=== PATIENT | male | born 1990 | race African-American/Black ===

== ENCOUNTER 2016-09-08 05:20 | Emergency (ER) | payer OTHER ==
[~2016-09-08] VITALS: Ht 185.4 cm; Wt 111.0 kg
[~2016-09-08 05:20] MED LIST: CEPH500C PO; CLIN-73 PO; CYCL-319 PO; DENIES; HYDR-3498 PO; HYDR-906 PO; IBUP-1542 PO; PSEUDOEPHEDRINE PO; TRAM50TA2 PO
[2016-09-08 05:27] VITALS: Ht 185.4 cm; Wt 111.0 kg
--- NOTE | 2016-09-08 05:41 | ERD ---
ER Documentation Chief Complaint Date/Time DATE: 09/08/16 TIME: 05:38 Chief Complaint left lower wisdom tooth pain HPI 25-year-old male presents to ED with chief complaint of constant left lower dental pain 3 days. Patient states that he was told he has a cavity over his left lower wisdom tooth however he has not had access to a dentist recently. He states that the pain is worse when he sleeping on his left side. Pain radiates down into his left lower jaw. He denies fever, chills, drooling, sore throat, difficulty breathing, or difficulty swallowing. Currently rates his pain a 9 out of 10 in severity. He states that he has been taking [place] and ibuprofen for the pain however he prefers ibuprofen because he feels that alleviates symptoms better. ROS All systems reviewed and are negative except as per history of present illness. Medications Home Meds Active Scripts Ibuprofen* (Motrin*) 600 Mg Tab, 600 MG PO Q6, #30 TAB Prov:Karlee Hurt PA-C 09/08/16 Amoxicillin/Potassium Clav (Amox-Clav 875-125 mg Tablet) 875-125 mg Tab, 1 TAB PO BID for 7 Days, #14 TAB Prov:Karlee Hurt PA-C 09/08/16 Hydrocodone/Acetaminophen ([place] 5-325 Tablet) 1 Each Tablet, 1 TAB PO Q6H Y for PAIN, #4 TAB Prov:LUZ HART PA-C 07/16/16 Cyclobenzaprine Hcl* (Cyclobenzaprine Hcl*) 10 Mg Tablet, 10 MG PO TID, #15 TAB Prov:LUZ HART PA-C 07/16/16 Tramadol HCl (Tramadol HCl) 50 Mg Tablet, 50 MG PO Q6 Y for SEVERE PAIN LEVEL 7- 10, #20 TAB Prov:MAYELIN HENDRICKS NP 02/13/16 Ibuprofen* (Motrin*) 600 Mg Tab, 600 MG PO Q6H Y for PAIN AND OR ELEVATED TEMP, #30 TAB Prov:MAYELIN HENDRICKS NP 02/13/16 Clindamycin Hcl* (Clindamycin Hcl*) 300 Mg Capsule, 300 MG PO TID for 10 Days, CAP Prov:MAYELIN HENDRICKS NP 02/13/16 Cephalexin* (Cephalexin*) 500 Mg Capsule, 500 MG PO Q6 for 10 Days, #28 CAP Prov:CHARU PEREIRA MD 12/28/15 Hydrocodone Bit-Acetaminophen* ([place]*) 5-325 Mg Tab, 1 TAB PO Q4H Y for PAIN, # 14 TAB Prov:CHARU PEREIRA MD 12/28/15 Ibuprofen* (Motrin*) 600 Mg Tab, 600 MG PO Q6H Y for PAIN, #30 TAB Prov:CHARU PEREIRA MD 12/28/15 Reported Medications [Pseudoephedrin Hcl] No Conflict Check, 30 MG PO BID 03/20/11 [Denies] No Conflict Check 03/10/11 Allergies Allergies: Coded Allergies: No Known Drug Allergies (Verified Allergy, Unknown, 08/26/14) PMhx/Soc History of Surgery: No Anesthesia Reaction: No Hx Neurological Disorder: No Hx Respiratory Disorders: No Hx Cardiac Disorders: No Hx Psychiatric Problems: No Hx Miscellaneous Medical Probl: No Hx Alcohol Use: Yes (social) Hx Substance Use: No Hx Tobacco Use: No Smoking Status: Never smoker Physical Exam Vitals Vital Signs Date Time Temp Pulse Resp B/P Pulse Ox O2 Delivery O2 Flow Rate FiO2 09/08/16 05:27 98.5 69 18 125/59 96 Physical Exam GENERAL: Non-toxic. No apparent signs of distress. HEENT: Atraumatic. Bilateral eyes are PERRL EOM intact. Normal conjunctiva, no injection. No eyelid or lower eyelid swelling noted. Ears: Normal tympanic membrane, no erythema or bulging. No ear canal swelling. No ear discharge. Nose : no nasal discharge. Throat: Oropharynx normal. Tongue pink and moist. No tonsillar swelling or tonsillar exudates. No lymphadenopathy. Poor dentition, with several carries throughout mouth. Swelling over left lower gingiva. LUNGS: Clear to auscultation. No accessory muscle use. No wheezing, no crackles. No signs or symptoms of respiratory distress. HEART: Regular rate and rhythm. No murmurs, clicks, rubs or gallops. NEURO: Cranial nerves are grossly intact. Normal mental status for age. Good muscle tone. SKIN: There is no apparent rash, petechiae, erythema or swelling. Good skin turgor. Procedures/MDM Patient presented with dental pain over the left lower molars. On physical exam there was evidence of poor dentition and gingival swelling over the lower left molars. However there is no diffuse edema or erythema over the patient's cheek or neck. Patient denied fever and chills. At this time of low suspicion for cellulitis, parotitis, pharyngitis, peritonsillar abscess, and sepsis. Physical exam findings and patient's symptoms are consistent with acute dental abscess. I gave him a prescription for Augmentin as well as ibuprofen 600 mg for pain. I explained that this infection will continue to be recurrent until he follows up with a dentist for proper dental care. At this time patient is stable for discharge and outpatient management. Advised to follow-up with dentist in 1-2 days. Departure Diagnosis: Primary Impression: Dental abscess Condition: Stable Patient Instructions: Dental Abscess Karlee Hurt PA-C Sep 08, 2016 05:41
[2016-09-08] MEDS ORDERED: IBUP-1542 PO (05:43)
[2016-09-08] MEDS ORDERED: AMOX1TAB10 PO (05:43)
== END 2016-09-08 05:57 | disposition home or self-care (01) ==
LOC: FTE 05:20
DX: K04.7 Periapical abscess without sinus (principal)
CPT/HCPCS: 99283

== ENCOUNTER 2016-10-18 10:53 | Emergency (ER) | payer SELFPAY ==
[~2016-10-18] VITALS: Ht 185.4 cm; Wt 106.5 kg
[~2016-10-18 10:53] MED LIST changes: +AMOX1TAB10 PO
[2016-10-18 10:56] VITALS: Ht 185.4 cm; Wt 106.5 kg
== END 2016-10-18 16:08 | disposition left against medical advice (07) ==
LOC: FTE 10:53
DX: Z53.21 Procedure and treatment not carried out due to patient leaving prior to being seen by health care provider (principal)

== ENCOUNTER 2016-12-31 10:51 | Emergency (ER) | payer OTHER ==
[~2016-12-31] VITALS: Ht 152.4 cm; Wt 109.5 kg
[2016-12-31 10:59] VITALS: Ht 152.4 cm; Wt 109.5 kg
[2016-12-31] MEDS ORDERED: IBUP800T25 PO (12:12)
[2016-12-31] MEDS ORDERED: AMOX1TAB10 PO (12:12)
--- NOTE | 2016-12-31 14:23 | ERD ---
ER Documentation Chief Complaint Date/Time DATE: 12/31/16 TIME: 14:01 Chief Complaint DENTAL PAIN X 2 MONTHS HPI Patient is a 26-year-old male with no past medical history who presents to the ED with left lower molar dental pain on and off for the last 2 months. He states that he went to his dentist, over 2 months ago and was given amoxicillin. He states that he needs to go to his dentist however he has been procrastinating. He denies fever or chills. He denies difficulty breathing or swallowing. He denies headache, dizziness, neck pain or neck stiffness. Denies abdominal pain, nausea, vomiting or diarrhea. Patient is requesting antibiotic. ROS All systems reviewed and are negative except as per history of present illness. Medications Home Meds Active Scripts Ibuprofen* (Motrin*) 800 Mg Tab, 800 MG PO Q6, #20 TAB Prov:LUZ HART PA-C 12/31/16 Amoxicillin/Potassium Clav (Amox-Clav 875-125 mg Tablet) 875-125 mg Tab, 1 TAB PO BID for 7 Days, #14 TAB Prov:LUZ HART PA-C 12/31/16 Ibuprofen* (Motrin*) 600 Mg Tab, 600 MG PO Q6, #30 TAB Prov:Karlee Hurt PA-C 09/08/16 Amoxicillin/Potassium Clav (Amox-Clav 875-125 mg Tablet) 875-125 mg Tab, 1 TAB PO BID for 7 Days, #14 TAB Prov:Karlee Hurt PA-C 09/08/16 Hydrocodone/Acetaminophen ([place] 5-325 Tablet) 1 Each Tablet, 1 TAB PO Q6H Y for PAIN, #4 TAB Prov:LUZ HART PA-C 07/16/16 Cyclobenzaprine Hcl* (Cyclobenzaprine Hcl*) 10 Mg Tablet, 10 MG PO TID, #15 TAB Prov:LUZ HART PA-C 07/16/16 Tramadol HCl (Tramadol HCl) 50 Mg Tablet, 50 MG PO Q6 Y for SEVERE PAIN LEVEL 7- 10, #20 TAB Prov:MAYELIN HENDRICKS NP 02/13/16 Ibuprofen* (Motrin*) 600 Mg Tab, 600 MG PO Q6H Y for PAIN AND OR ELEVATED TEMP, #30 TAB Prov:MAYELIN HENDRICKS NP 02/13/16 Clindamycin Hcl* (Clindamycin Hcl*) 300 Mg Capsule, 300 MG PO TID for 10 Days, CAP Prov:MAYELIN HENDRICKS NP 02/13/16 Cephalexin* (Cephalexin*) 500 Mg Capsule, 500 MG PO Q6 for 10 Days, #28 CAP Prov:CHARU PEREIRA MD 12/28/15 Hydrocodone Bit-Acetaminophen* ([place]*) 5-325 Mg Tab, 1 TAB PO Q4H Y for PAIN, # 14 TAB Prov:CHARU PEREIRA MD 12/28/15 Ibuprofen* (Motrin*) 600 Mg Tab, 600 MG PO Q6H Y for PAIN, #30 TAB Prov:CHARU PEREIRA MD 12/28/15 Reported Medications [Pseudoephedrin Hcl] No Conflict Check, 30 MG PO BID 03/20/11 [Denies] No Conflict Check 03/10/11 Allergies Allergies: Coded Allergies: No Known Drug Allergies (Verified Allergy, Unknown, 08/26/14) PMhx/Soc History of Surgery: No Anesthesia Reaction: No Hx Neurological Disorder: No Hx Respiratory Disorders: No Hx Cardiac Disorders: No Hx Psychiatric Problems: No Hx Miscellaneous Medical Probl: No Hx Alcohol Use: Yes (social) Hx Substance Use: No Hx Tobacco Use: No Smoking Status: Former smoker FmHx Family History: No coronary disease, No diabetes, No other Physical Exam Vitals Vital Signs Date Time Temp Pulse Resp B/P Pulse Ox O2 Delivery O2 Flow Rate FiO2 12/31/16 10:59 98.5 108 18 129/71 99 Physical Exam GENERAL: Well-developed, well-nourished male. Appears in no acute distress. HEAD: Normocephalic, atraumatic. EYES: Pupils are equally reactive bilaterally. EOMs grossly intact. No conjunctival erythema. ENT: Moist mucous membranes. No uvula deviation. No kissing tonsils. No exudates. tenderness to lower back molar with mild decay. no mastoid tenderness. no signs of abscess. NECK: Supple. No lymphadenopathy or thyromegaly. No meningismus. negative kernig. negative brudinski. LUNG: Clear to auscultation bilaterally. No rhonchi, wheezing, rales or coarse breath sounds. HEART: Regular rate and rhythm. No murmurs, rubs or gallops. Extremities: Equal pulses bilaterally. No peripheral clubbing, cyanosis or edema. No unilateral leg swelling. NEUROLOGIC: Alert and oriented. Moving all four extremities. 5/5 strength in all extremities. Normal speech. Steady gait. SKIN: Normal color. Warm and dry. No rashes or lesions. Capillary refill < 2 seconds Procedures/MDM ER COURSE: I kept the patient and/or family informed of laboratory and diagnostic imaging results throughout the emergency room course. MEDICAL DECISION MAKING: This is a 26-year-old male who presents with left-sided tooth pain on and off 2 months. Vital signs were reviewed. Patient is afebrile. Patient is not hypoxic. Patient is not toxic or ill-appearing. Patient has dental pain of unknown etiology. Low suspicion for abscess. Low suspicion for peritonsillar abscess, strep pharyngitis, mastoiditis. DISCHARGE: At this time, patient is stable for discharge and outpatient management with no new complaints during the ER course. Patient was sent home with Augmentin, ibuprofen and to follow-up with dentist.. Patient will be discharged home with instructions to recheck for new or worsening symptoms such as fever, nausea, weakness, LOC and to follow up with primary care in the next 1-2 days. Patient was advised to return to the ER for any new or worsening symptoms. Plan was discussed and patient and/or family understands and agrees. Home instructions were given. Departure Diagnosis: Primary Impression: Pain, dental Condition: Stable Patient Instructions: Dental Pain Additional Instructions: Call your primary care doctor TOMORROW for an appointment during the next 1-2 days.See the doctor sooner or return here if your condition worsens before your appointment time. LUZ HART PA-C December 31, 2016 14:22
== END 2016-12-31 12:26 | disposition home or self-care (01) ==
LOC: FTE 10:51
DX: K08.89 Other specified disorders of teeth and supporting structures (principal); Z87.891 Personal history of nicotine dependence
CPT/HCPCS: 99283

== ENCOUNTER 2017-04-12 05:27 | Emergency (ER) | payer OTHER ==
[~2017-04-12] VITALS: Ht 182.9 cm; Wt 105.5 kg
[~2017-04-12 05:27] MED LIST changes: +IBUP800T25 PO
[2017-04-12 05:33] VITALS: Ht 182.9 cm; Wt 105.5 kg
[2017-04-12] MEDS ORDERED: IBUPROFEN 800 MG TAB PO ONE (06:30)
[2017-04-12] MEDS ORDERED: IBUP800T25 PO (06:54)
[2017-04-12] MEDS ORDERED: PEN500 PO (06:55)
[2017-04-12] MEDS ORDERED: ACET500C5 PO (06:56)
--- NOTE | 2017-04-12 07:02 | ERD ---
ER Documentation Chief Complaint Date/Time DATE: 04/12/17 TIME: 06:59 Chief Complaint tooth ache x days HPI This 26-year-old male presents the emergency department today complaining of left-sided dental pain for the past couple of days. States he has had this problem in the past. States that he has not been able to get to his dentist as he was recently moving and wanted a safe place for his kids. States he has not taken any medication for the pain. Denies any fevers or chills. ROS All systems reviewed and are negative except as per history of present illness. Medications Home Meds Active Scripts Acetaminophen* (Tylophen*) 500 Mg Capsule, 1 CAP PO Q6H Y for PAIN AND OR ELEVATED TEMP, #30 CAP Prov:ALYSHA OHARA PA-C 04/12/17 Penicillin V Potassium* (Penicillin V K*) 500 Mg Tab, 500 MG PO QID for 7 Days, TAB Prov:ALYSHA OHARA PA-C 04/12/17 Ibuprofen* (Motrin*) 800 Mg Tab, 800 MG PO Q6, #30 TAB Prov:ALYSHA OHARA PA-C 04/12/17 Ibuprofen* (Motrin*) 800 Mg Tab, 800 MG PO Q6, #20 TAB Prov:LUZ HART PA-C 12/31/16 Amoxicillin/Potassium Clav (Amox-Clav 875-125 mg Tablet) 875-125 mg Tab, 1 TAB PO BID for 7 Days, #14 TAB Prov:LUZ HART PA-C 12/31/16 Ibuprofen* (Motrin*) 600 Mg Tab, 600 MG PO Q6, #30 TAB Prov:Karlee Hurt PA-C 09/08/16 Amoxicillin/Potassium Clav (Amox-Clav 875-125 mg Tablet) 875-125 mg Tab, 1 TAB PO BID for 7 Days, #14 TAB Prov:Karlee Hurt PA-C 09/08/16 Hydrocodone/Acetaminophen ([place] 5-325 Tablet) 1 Each Tablet, 1 TAB PO Q6H Y for PAIN, #4 TAB Prov:LUZ HART PA-C 07/16/16 Cyclobenzaprine Hcl* (Cyclobenzaprine Hcl*) 10 Mg Tablet, 10 MG PO TID, #15 TAB Prov:LUZ HART PA-C 07/16/16 Tramadol HCl (Tramadol HCl) 50 Mg Tablet, 50 MG PO Q6 Y for SEVERE PAIN LEVEL 7- 10, #20 TAB Prov:MAYELIN HENDRICKS NP 02/13/16 Ibuprofen* (Motrin*) 600 Mg Tab, 600 MG PO Q6H Y for PAIN AND OR ELEVATED TEMP, #30 TAB Prov:MAYELIN HENDRICKS NP 02/13/16 Clindamycin Hcl* (Clindamycin Hcl*) 300 Mg Capsule, 300 MG PO TID for 10 Days, CAP Prov:MAYELIN HENDRICKS NP 02/13/16 Cephalexin* (Cephalexin*) 500 Mg Capsule, 500 MG PO Q6 for 10 Days, #28 CAP Prov:CHARU PEREIRA MD 12/28/15 Hydrocodone Bit-Acetaminophen* ([place]*) 5-325 Mg Tab, 1 TAB PO Q4H Y for PAIN, # 14 TAB Prov:CHARU EPREIRA MD 12/28/15 Ibuprofen* (Motrin*) 600 Mg Tab, 600 MG PO Q6H Y for PAIN, #30 TAB Prov:CHARU PEREIRA MD 12/28/15 Reported Medications [Pseudoephedrin Hcl] No Conflict Check, 30 MG PO BID 03/20/11 [Denies] No Conflict Check 03/10/11 Allergies Allergies: Coded Allergies: No Known Drug Allergies (Verified Allergy, Unknown, 08/26/14) PMhx/Soc History of Surgery: No Anesthesia Reaction: No Hx Neurological Disorder: No Hx Respiratory Disorders: No Hx Cardiac Disorders: No Hx Psychiatric Problems: No Hx Miscellaneous Medical Probl: No Hx Alcohol Use: Yes (social) Hx Substance Use: No Hx Tobacco Use: No Physical Exam Vitals Vital Signs Date Time Temp Pulse Resp B/P Pulse Ox O2 Delivery O2 Flow Rate FiO2 04/12/17 05:33 98.2 78 20 116/59 100 Physical Exam Const: NAD Head: Atraumatic Eyes: Normal Conjunctiva ENT: Normal External Ears, Nose and Mouth.Left side lower and upper wisdom teeth with evidence of decay and tooth fracture. Neck: Full range of motion..~ No meningismus. Resp: Clear to auscultation bilaterally Cardio: Regular rate and rhythm, no murmurs Skin: No petechiae or rashes Neur: Awake and alert Psych: Normal Mood and Affect Results 24 hrs Current Medications Medications (Trade) Dose Ordered Sig/Yg Route PRN Reason Start Time Stop Time Status Last Admin Dose Admin Ibuprofen (Motrin) 800 mg ONCE ONCE PO 04/12/17 06:30 04/12/17 06:31 DC 04/12/17 06:28 Procedures/MDM This 26-year-old male presents the emergency department today for left-sided dental pain for the past couple of days. On physical exam patient has evidence of decay on his upper and lower molar. Patient indicated he has had this problem in the past. Upon review of patient's medical records patient was seen here last in December for dental pain. He does not appear to have any other visits to emergency department since that time for pain related complaints or any complaints for that matter. Patient is afebrile and otherwise well-appearing. Patient was driving himself and he was therefore given Motrin here in the emergency department. He will be given a prescription for Tylenol, Motrin and Pen-Vee K for home. I do have low suspicion for dental abscess however that would cover him for that. His symptoms at this time is consistent with dental pain and possible early abscess. Patient does indicate that he does know his dentist. I have also given him a list of referral for [facility] dentist. At this time the patient is stable for discharge and outpatient management. Patient should follow up with their PCP in the next 1-2 days. They may return to the emergency department sooner for any persistent or worsening of symptoms. Patient understood and agreed with the plan. Departure Diagnosis: Primary Impression: Pain, dental Condition: Fair Patient Instructions: Dental Pain Referrals: [facility] ([facility] walk [facility] clinic) Additional Instructions: Call your primary care doctor TOMORROW for an appointment during the next 1-2 days.See the doctor sooner or return here if your condition worsens before your appointment time. Tylenol every 4 hours or Motrin every 6 hours for pain Take antibiotics as prescribed Make an appt with your dentist or [facility] dentist ALYSHA OHARA PA-C Apr 12, 2017 07:02
== END 2017-04-12 07:07 | disposition home or self-care (01) ==
LOC: FTE 05:27
DX: K08.89 Other specified disorders of teeth and supporting structures (principal)
CPT/HCPCS: Z7502; Z7610; 99283

== ENCOUNTER 2017-12-17 23:47 | Emergency (ER) | END 2017-12-18 02:09 | disposition home or self-care (01) ==

== ENCOUNTER 2017-12-23 14:00 | Emergency (ER) | END 2017-12-23 14:41 | disposition home or self-care (01) ==

== ENCOUNTER 2018-05-23 22:45 | Emergency (ER) | END 2018-05-24 00:45 | disposition home or self-care (01) ==